=== PATIENT | male | born 1995 | race Caucasian/White ===

== ENCOUNTER 2021-12-29 13:51 | Emergency (ER) | payer MEDICAID, SELFPAY ==
[2021-12-29 13:54] VITALS: BP 162/78; PULSE 84; RESP 16; TEMP 36.9; O2SAT 96; BMI 45.9
--- NOTE | 2021-12-29 14:37 | ED_ITS ---
HPI - Extremity Problem General: Chief complaint: Extremity Problem,Nontraumatic Stated complaint: left leg pain Time Seen by Provider: 12/29/21 14:00 Source: patient and family Mode of arrival: ambulatory Limitations: no limitations History of Present Illness: This gentleman comes to the emergency department because of concerns about lower extremity swelling itching and rash on both lower extremities as well as concerned about a possible blood clot in his left leg. Dates he is fairly sedentary works from home and spends his time sitting at the computer most of the day. He states he is does not get up and ambulate very much at all. He relates that he has apparently had to lower extremity DVT in the past of uncertain etiology. He currently does not take any antiplatelets or anticoagulant medication. He denies any knee injury. He says both of his episodes were behind his left knee. He has no family history of hypercoagulability etc. He also relates he has been scratching both his lower extremities because of the itching and scratching enough that it is causing excoriation and bleeding to areas. He has not had any any if itching in other locations or rash in other locations of his body. He states he has been spending much time outside in the tall grass etc. He does have a pet at home that has fleas and that pet predominantly relates that his feet when he sitting at the computer. When else at home is similarly affected. He denies shortness of breath, chest pain or other associated symptoms at this time. He denies any recent near knee injury. MD Complaint: extremity swelling Associated symptoms: Reports rash; Deny chest pain or fever(s) Context: history of DVT Review of Systems Const: Denies: fever(s) or chills Eyes: Denies: change in vision ENMT: Denies: throat pain, odynophagia, nasal discharge or nasal congestion Card: Denies: chest pain, palpitations, syncope, pre-syncope or dyspnea on exertion Resp: Denies: dyspnea, productive cough or non-productive cough GI: Denies: abdominal pain, nausea or vomiting : Denies: flank pain, difficulty urinating or dysuria Skin/Breast: Reports: rash, pruritus and erythema Neuro: Denies: headache(s), numbness in extremities or weakness in extremities Psych: Denies: anxiety, depression or mood swings Endo: Denies: polyuria or polydipsia Zack/Lymph: Denies: easy bruising or easy bleeding All/Imm: Denies: urticaria Physical Exam Narrative: EXAM NARRATIVE: He is a pleasant gentleman who makes good eye contact and appears comfortable. Speech is goal-directed. Const: COMMON NORMALS: no acute distress, patient oriented x3, healthy appearing and alert GENERAL APPEARANCE: cooperative and comfortable NUTRITIONAL APPEARANCE: overweight HENMT: COMMON NORMALS: normocephalic, Normal nasal mucous membranes and t urbinates present and moist oral mucous membranes HEAD & SCALP: normocephalic NOSE: Normal nasal mucous membranes and turbinates present Eye: COMMON NORMALS: Equal, round and reactive pupils present and EOMs intact bilaterally PUPIL: Yes Equal, round and reactive pupils present Neck/C-Spine: COMMON NORMALS: full ROM and no JVD Chest: COMMONS NORMALS: normal inspection of the chest Resp: COMMON NORMALS: normal respiratory effort, No retractions and No use of accessory muscles EFFORT & INSPECTION: Yes able to speak in complete sentences Cardio: COMMON NORMALS: no JVD, regular rate and Peripheral pulses 2+ throughout RATE: regular rate PERIPHERAL PULSES: Peripheral pulses 2+ throughout GI: COMMON NORMALS: Normal to inspection, nondistended, normoactive bowel sounds present : COMMON NORMALS: Yes no CVA tenderness BLADDER/KIDNEY EXAM: Yes no CVA tenderness Back/Pelvis: COMMON NORMALS: no CVA tenderness, thoracic and lumbar spine normal to inspection and thoraco-lumbar ROM normal Extremity: COMMON NORMALS: capillary refill normal NARRATIVE EXTREMITY EXAM: Examination both lower extremities reveal areas of except linear excoriation on the skin of both lower legs below the knee. None above the knee. He has no joint deformity, joint effusions. Capillary refill is normal. Peripheral pulses are palpable and equal bilaterally. He has numerous raised papules that appear to have clear fluid other than areas that are excoriated which are scabbed. No surrounding erythema or ascending lymphangitis or lymphadenopathy proximally are noted. With attention to his left knee there is no joint effusion. There is no joint line tenderness. He has no laxity of varus or elva maria r stress. He has intact patellar tendon function. No palpable masses in the popliteal fossa. Neuro: COMMON NORMALS: patient oriented x3 and moves all extremities SENSORIUM/ORIENTATION: Yes alert SPEECH: speech normal Psych: COMMON NORMALS: mental status grossly normal Skin: NARRATIVE SKIN EXAM: Skin examination is noted for the papules with linear excoriation as noted above. There is no surrounding erythema redness or proximal lymphangitis or lymphadenopathy. GENERAL SKIN EXAM: no erythema, Excoriation and no petechiae Course Reevaluation(s): Reevaluation #1: Portable bedside ultrasound was used to visualize the venous structures of the left leg. Starting at distal calf and proceeding proximally all veins were compressible to the trifurcation and proximally starting at the trifurcation in the popliteal fossa along the superficial and deep femoral vessels. Time: 14:45 Reevaluation #2: Interestingly his D-dimer is significantly elevated. We will [place] proceed with formal bilateral Doppler ultrasounds. Time: 16:00 Vital Signs: Vital signs: Vital Signs Temperature 98.5 F 12/29/21 13:54 Pulse Rate 84 12/29/21 13:54 Respiratory Rate 16 12/29/21 13:54 Blood Pressure 162/78 12/29/21 13:54 Pulse Oximetry 96 12/29/21 13:54 Oxygen Delivery Me thod 12/29/21 13:54 MDM - Extremity (Nontraumatic) Medical Decision Making Patient who presented to our emergency department because of concerns about possible blood clot in his left leg because of some soreness and swelling in his left leg. History of DVT previously treated in a short-term basis without any sequelae. He also had rash on his lower extremities that was very pruritic and caused him to itch and excoriated his lower extremities. No other constitutional symptoms to include fever shortness of breath cough lightheadedness etc. His evaluation here initially with a bedside ultrasound w as negative for DVT on the left leg however did have a elevated D-dimer so a formal Doppler ultrasound was pleated on both legs without any evidence of DVT or other concerns. Unclear as to the etiology of his lower extremity rash but this may be a factor in the falsely elevated D-dimer. Certainly no evidence to suggest other clinical conditions such as liver disease kidney disease etc. by history that would can be contributory. He otherwise is in good health and clinically stable(i.e. no fever, no tachycardia no hypoxia no shortness of breath etc.0. History of dogs at home with fleas but no other family members affected. Wrong season for chiggers and unlikely to be scabies however does have a clinical appearance that suggest the latter. We will going proceed with symptomatic treatment with outpatient follow-up and return precautions.(No clinical indication of secondary infection or cellulitis at this time.) Also should add that we discussed his homework schedule and he should become more ambulatory and when he does sit for prolonged periods of time he should use support hose. Lab Data I reviewed the patient's lab results. Laboratory Results D-Dimer 3.69 ug/mIFEU (0-0.59) H 12/29/21 14:44 Discharge Plan Discharge Patient Disposition: Home Clinical Impression: Dependent edema, Pruritic rash Condition: Stable Prescriptions: New hydroxyzine HCl 25 mg tablet 25 mg PO BID PRN (Reason: itching) Qty: 20 0RF permethrin 5 % cream 1 applic topical Q14D Qty: 60 0RF Rx Instructions: apply second treatment 14 days after first treatment if live lice remain prednisone 20 mg tablet 20 mg PO BID 7 Days Qty: 14 0RF Discharge Orders: Discharge ED (Routine); Ordered 12/29/21 Ordered By: Jimmy Martinez Discharge Diet: Low Salt Discharge Activity: Increase activity as tolerated Patient Instructions: Opioid Safety, Pain Management Activity Restrictions/Additional Instructions: As we discussed he did not have any evidence of blood clots in your legs today. You do have this rash which is unclear as to its cause but we have prescribed medication to help with your symptoms. We also recommend that you walk and get up and stretch at least on an hourly basis while you are working at your desk. We also recommend that you use support hose to help reduce any lower leg swelling. If you develop fevers chills shortness of breath increasing redness or any other concerns at any time return to this emergency department. Otherwise schedule a follow-up examination with your physician in approximately 2 weeks. Coding Level of Care Code ED Ingredient Specialist for Susan Gonzalez Exam Comprehensive
[2021-12-29 15:48] LABS: D Dimer 3.69 ug/mIFEU (0-0.59)
--- NOTE | 2021-12-29 15:56 | USCV_ITS ---
Alfonzo Lindo Age: 26 Gender: M : 1995 Exam Date: 12/29/2021 16:08 Ordering Phys: Jimmy Martinez DO Technologist: CHERYL [place] [facility] [place]: BLE PAIN HISTORY: Lower extremity pain. PROCEDURES: Venous duplex imaging was performed in bilateral lower extremities. The following venous structures were evaluated: common femoral vein, profunda vein, proximal portion of the greater saphenous vein, superficial femoral vein, and the popliteal vein. In addition, the posterior tibial and peroneal trunk were evaluated. Serial compression, augmentation maneuvers, and spectral Doppler flow evaluation were performed. FINDINGS: No evidence of DVT seen in any vessel visualized at this time. Examination was technically limited due to body habitus. CONCLUSIONS No evidence of right lower extremity DVT. No evidence of left lower extremity DVT. Matthew Hutchinson MD (Electronically Signed) Final Date: 29 December 2021 16:31 S
[2021-12-29 17:48] VITALS: BP 132/81; PULSE 78; RESP 16
== END 2021-12-29 17:49 | disposition home or self-care (01) ==
PROVIDERS: Emergency Provider Emergency Medicine
DX: R60.9 Edema, unspecified (principal); L29.9 Pruritus, unspecified
CPT/HCPCS: 36415; 85378; 93970; 99284

== ENCOUNTER → 2022-04-09 09:41 | Outpatient (BNVA) | payer MEDICAID, SELFPAY | PROVIDERS: Visit Provider Nurse Practitioner Family | DX: S99.911A Unspecified injury of right ankle, initial encounter (principal); X58.XXXA Exposure to other specified factors, initial encounter | CPT/HCPCS: 73610 ==

== ENCOUNTER 2022-07-04 16:22 | Emergency (ER) | payer MEDICAID, SELFPAY ==
[2022-07-04] VITALS (10 sets, daily range): BP systolic 113–174; BP diastolic 73–108; PULSE 58–76; RESP 17–20; TEMP 37; O2SAT 93–97; BMI 48.7
--- NOTE | 2022-07-04 16:52 | CTR_ITS ---
PROCEDURE INFORMATION: Exam: CT Head Without Contrast Exam date and time: 07/04/2022 5:05 PM Age: 27 years old Clinical indication: Dizziness; Additional info: Vertigo TECHNIQUE: Imaging protocol: Computed tomography of the head without contrast. Radiation optimization: All CT scans at this facility use at least one of these dose optimization techniques: automated exposure control; mA and/or kV adjustment per patient size (includes targeted exams where dose is matched to clinical indication); or iterative reconstruction. REPORTING DATA: Count of CT and Cardiac NM exams in prior 12 months: This patient has received 0 known CTs and 0 known cardiac nuclear medicine studies in the 12 months prior to the current study. COMPARISON: No relevant prior studies available. RADIATION DOSE METRICS: Total DLP (mGy-cm): 1175.05 FINDINGS: Brain: Normal. No hemorrhage. Unremarkable white matter. No mass effect. Cerebral ventricles: No ventriculomegaly. Paranasal sinuses: Scattered paranasal sinus mucosal thickening, without air-fluid level present. Mastoid air cells: Visualized mastoid air cells are well aerated. Bones/joints: Unremarkable. No acute fracture. Soft tissues: Unremarkable. CT/CT head wo con* [id number] IMPRESSION: No acute intracranial abnormality.
--- NOTE | 2022-07-04 16:53 | W.ED.DIZZY ---
Documented by User: Aaron Wall DO 07/04/22 16:56 HPI - Dizziness General: Chief Complaint: Dizziness Stated Complaint: Vertigo, Dizziness Time Seen by Provider: 07/04/22 16:46 History of Present Illness: HPI Narrative: Patient presents to the ER with complaints of dizziness, started last night when he got up out of the bed to use the restroom. It was worse this morning. Patient is unable to sit up straight due to the room spinning. Patient has never had this before. MD elicited complaint: dizziness Onset (ago): day(s) (Last night but worse this morning) Timing: awoke with symptoms and constant Severity: moderate Description: sense of movement and room spinning History of similar symptoms: No Exacerbating factors: movement/ambulation and change in body position Relieving factors: nothing Associated symptoms: Reports no associated symptoms; Denies chest pain, chills, nausea or palpitations Associated neuro symptoms: Reports no associated symptoms Review of Systems General: Reports: 10 or more systems reviewed and unremarkable except in HPI and below Const: Denies: fever(s) or chills ENMT: Denies: throat pain or enlarged tonsils Card: Denies: chest pain, palpitations or irregular heart rhythm Resp: Denies: dyspnea, productive cough or non-productive cough GI: Denies: abdominal pain or nausea : Denies: flank pain, difficulty urinating or dysuria Musc: Denies: neck pain, back pain or extremity pain PFS ED PFSH: Medical History Anxiety DVT (deep venous thrombosis) Surgical History No pertinent past surgical history Family History Mother Stroke Father No problems noted. Grandfather Diabetes Social History Smoking and tobacco status: current every day smoker e-cigarettes E-Cigarette Details: vaporizer device Second hand smoke exposure: No Alcohol intake: current Alcohol intake frequency: holidays/special occasions only Alcohol type: beer Substance/Drug Use: current Substance/Drug use frequency: few times a week Adopted: No Lives independently: Yes Household members: significant other Marital status: Single service: No Current occupational status: employed Current gender identity: Male Special macy needs: No Physical Exam Const: COMMON NORMALS: no acute distress, average body habitus, patient oriented x3, no limitations, healthy appearing, alert and well nourished HENMT: COMMON NORMALS: normocephalic, atraumatic, hearing grossly normal bilaterally, external ears normal, Normal external nose present and moist oral mucous membranes HEAD & SCALP: normocephalic and atraumatic NOSE: Normal external nose present EXTERNAL EAR: Yes external ears normal Eye: COMMON NORMALS: Equal, round and reactive pupils present, EOMs intact bilaterally, conjunctivae normal and no scleral icterus CONJUNCTIVA: Yes conjunctivae normal PUPIL: Yes Equal, round and reactive pupils present Neck/C-Spine: COMMON NORMALS: full ROM and no meningeal signs; negative for supple, negative for no JVD, negative for Thyroid normal and negative for No carotid bruits THYROID: abnormal thyroid Lymph: LYMPHATIC: no lymphadenopathy noted Chest: COMMONS NORMALS: normal inspection of the chest and normal palpation of entire chest wall Resp: COMMON NORMALS: normal respiratory effort, No retractions, No use of accessory muscles and clear to auscultation bilaterally AUSCULTATION: clear to auscultation bilaterally Cardio: COMMON NORMALS: regular rate, S1 normal heart sound present and S2 normal heart sound present; negative for no JVD RATE: regular rate HEART SOUNDS: S1 normal heart sound present and S2 normal heart sound present GI: COMMON NORMALS: Normal to inspection, nondistended, normoactive bowel sounds present, Soft to palpation, non-tender, No hepatosplenomegaly present and no masses PALPATION: Yes Soft to palpation and Yes No hepatosplenomegaly present : COMMON NORMALS: Yes no CVA tenderness BLADDER/KIDNEY EXAM: Yes no CVA tenderness Back/Pelvis: COMMON NORMALS: no CVA tenderness Neuro: COMMON NORMALS: patient oriented x3 SENSORIUM/ORIENTATION: Yes alert MENINGEAL SIGNS: Yes no meningeal signs Course Vital Signs: Vital signs: Vital Signs Temperature 98.6 F 07/04/22 16:26 Pulse Rate 76 07/04/22 19:52 Respiratory Rate 20 H 07/04/22 19:52 Blood Pressure 147/89 07/04/22 19:30 Pulse Oximetry 96 07/04/22 19:52 Oxygen Delivery Me thod Room Air 07/04/22 19:30 [facility] - Dizziness Medical Records I reviewed the patient's medical records. Lab Data I reviewed the patient's lab results. 07/04/22 17:30 07/04/22 17:[address] 07/04/22 16:52 IMPRESSION: No acute intracranial abnormality. Laboratory Results WBC 9.9 10^3/uL (4.0-10.0) 07/04/22 17: RBC 5.01 10^6/uL (4.1-5.3) 07/04/22 17:30 Hgb 14.8 g/dL (11.7-16.6) 07/04/22 17:30 Hct 43.5 % (42.0-52.0) 07/04/22 17: MCV 86.8 fl (80-94) 07/04/22 17:30 MCH 29.5 pg (28.0-34.0) 07/04/22 17: MCHC 34.0 g/dL (30.0-36.0) 07/04/22 17: RDW 11.8 % (12.1-15.1) L 07/04/22 17:30 Plt Count 229 10^3/cmm (130-400) 07/04/22 17: MPV 10.7 fL (7.4-10.4) H 07/04/22 17:30 Neut % (Auto) 71.7 % 07/04/22 17:30 Lymph % (Auto) 19.7 % 07/04/22 17:30 [place] % (Auto) 5.8 % 07/04/22 17:30 Eos % (Auto) 2.0 % 07/04/22 17:30 Baso % (Auto) 0.6 % 07/04/22 17:30 Neut # (Auto) 7.10 10^3/uL (1.8-7.7) 07/04/22 17:30 Lymph # (Auto) 2.0 10^3/uL (0.8-4.8) 07/04/22 17:30 [place] # (Auto) 0.6 10^3/uL (0.2-0.9) 07/04/22 17:30 Eos # (Auto) 0.2 10^3/uL (0.0-0.8) 07/04/22 17:30 Baso # (Auto) 0.1 10^3/uL (0.0-0.1) 07/04/22 17:30 Nucleated RBC % (auto) 0 % 07/04/22 17:30 Nucleated RBCs # 0.0 /100WBC 07/04/22 17:30 Sodium 140 mmol/L (136-145) 07/04/22 17:30 Potassium 4.5 mmol/L (3.5-5.1) 07/04/22 17:30 Chloride 105 mmol/L (98-107) 07/04/22 17:30 Carbon Dioxide 24 mmol/L (22-29) 07/04/22 17:30 Anion Gap 15.5 (5-19) 07/04/22 17:30 BUN 8 mg/dL (6-20) 07/04/22 17:30 Creatinine 0.8 mg/dL (0.7-1.2) 07/04/22 17:30 GFR Calculation 115.1 mL/min (90-130) 07/04/22 17:30 Glucose 124 mg/dL (65-115) H 07/04/22 17:30 Calculated Osmolality 290 mOsm/kg (285-295) 07/04/22 17:30 Calcium 8.8 mg/dL (8.5-10.5) 07/04/22 17:30 Total Bilirubin 0.3 mg/dL (0.15-1.2) 07/04/22 17:30 AST 25 U/L (0-40) 07/04/22 17:30 ALT 31 U/L (0-41) 07/04/22 17:30 Alkaline Phosphatase 51 U/L (40-130) 07/04/22 17:30 Total Protein 6.6 g/dL (6.6-8.7) 07/04/22 17:30 Albumin 3.8 g/dL (3.5-5.2) 07/04/22 17:30 Globulin 2.8 g/dL (1.3-4.6) 07/04/22 17:30 SARS-CoV-2 Ag (Rapid) negative (Negative) 07/04/22 17:16 Discharge Plan Discharge Patient Disposition: Home Clinical Impression: Acute bacterial sinusitis Condition: Stable Prescriptions: New doxycycline hyclate 100 mg tablet 100 mg PO BID 7 Days Qty: 14 0RF meclizine 25 mg tablet 25 mg PO TID Qty: 30 0RF No Action diclofenac sodium 75 mg tablet,delayed release (DR/EC) 75 mg PO BID PRN (Reason: pain) Qty: 60 0RF Discharge Orders: Discharge ED (Routine); Ordered 07/04/22 Ordered By: Joe Zhang Patient Instructions: Sinusitis (ED), Vertigo (ED) Activity Restrictions/Additional Instructions: Take medication for dizziness 3 times daily until dizziness decreases significantly. Antibiotics are for sinusitis. See your doctor next week. Return for any new or worrisome symptoms. Call tomorrow for an appointment. Coding Level of Care Code ED Frothing Machine Operator for Chg Fwd Documented by User: Joe Zhang DO 07/04/22 21:17 HPI - Dizziness General: Chief Complaint: Dizziness Stated Complaint: Vertigo, Dizziness Time Seen by Provider: 07/04/22 16:46 PFSH ED PFSH: Medical History Anxiety DVT (deep venous thrombosis) Surgical History No pertinent past surgical history Family History Mother Stroke Father No problems noted. Grandfather Diabetes Social History Smoking and tobacco status: current every day smoker e-cigarettes E-Cigarette Details: vaporizer device Second hand smoke exposure: No Alcohol intake: current Alcohol intake frequency: holidays/special occasions only Alcohol type: beer Substance/Drug Use: current Substance/Drug use frequency: few times a week Adopted: No Lives independently: Yes Household members: significant other Marital status: Single service: No Current occupational status: employed Current gender identity: Male Special macy needs: No Course Vital Signs: Vital signs: Vital Signs Temperature 98.6 F 07/04/22 16:26 Pulse Rate 76 07/04/22 19:52 Respiratory Rate 20 H 07/04/22 19:52 Blood Pressure 147/89 07/04/22 19:30 Pulse Oximetry 96 07/04/22 19:52 Oxygen Delivery Me thod Room Air 07/04/22 19:30 MDM - Dizziness Medical Decision Making 27-year-old male checked out to me by the previous physician at shift change. This patient complains of dizziness. It is somewhat improved, mainly positional at this point, especially with getting up from a sitting position. He is not orthostatic. Laboratory is normal. Head CT is negative, save some sinus disease. We will treat sinusitis and put him on some meclizine and have him follow-up as an outpatient. I see no signs of posterior circulation stroke on repeat exam. Lab Data 07/04/22 17:30 07/04/22 17:[address] 07/04/22 16:52 IMPRESSION: No acute intracranial abnormality. Laboratory Results WBC 9.9 10^3/uL (4.0-10.0) 07/04/22 17:30 RBC 5.01 10^6/uL (4.1-5.3) 07/04/22 17:30 Hgb 14.8 g/dL (11.7-16.6) 07/04/22 17:30 Hct 43.5 % (42.0-52.0) 07/04/22 17:30 MCV 86.8 fl (80-94) 07/04/22 17:30 MCH 29.5 pg (28.0-34.0) 07/04/22 17:30 MCHC 34.0 g/dL (30.0-36.0) 07/04/22 17:30 RDW 11.8 % (12.1-15.1) L 07/04/22 17:30 Plt Count 229 10^3/cmm (130-400) 07/04/22 17:30 MPV 10.7 fL (7.4-10.4) H 07/04/22 17:30 Neut % (Auto) 71.7 % 07/04/22 17:30 Lymph % (Auto) 19.7 % 07/04/22 17:30 [place] % (Auto) 5.8 % 07/04/22 17:30 Eos % (Auto) 2.0 % 07/04/22 17:30 Baso % (Auto) 0.6 % 07/04/22 17:30 Neut # (Auto) 7.10 10^3/uL (1.8-7.7) 07/04/22 17:30 Lymph # (Auto) 2.0 10^3/uL (0.8-4.8) 07/04/22 17:30 [place] # (Auto) 0.6 10^3/uL (0.2-0.9) 07/04/22 17:30 Eos # (Auto) 0.2 10^3/uL (0.0-0.8) 07/04/22 17:30 Baso # (Auto) 0.1 10^3/uL (0.0-0.1) 07/04/22 17:30 Nucleated RBC % (auto) 0 % 07/04/22 17: Nucleated RBCs # 0.0 /100WBC 07/04/22 17:30 Sodium 140 mmol/L (136-145) 07/04/22 17:30 Potassium 4.5 mmol/L (3.5-5.1) 07/04/22 17: Chloride 105 mmol/L (98-107) 07/04/22 17: Carbon Dioxide 24 mmol/L (22-29) 07/04/22 17:30 Anion Gap 15.5 (5-19) 07/04/22 17:30 BUN 8 mg/dL (6-20) 07/04/22 17:30 Creatinine 0.8 mg/dL (0.7-1.2) 07/04/22 17:30 GFR Calculation 115.1 mL/min (90-130) 07/04/22 17:30 Glucose 124 mg/dL (65-115) H 07/04/22 17:30 Calculated Osmolality 290 mOsm/kg (285-295) 07/04/22 17: Calcium 8.8 mg/dL (8.5-10.5) 07/04/22 17:30 Total Bilirubin 0.3 mg/dL (0.15-1.2) 07/04/22 17:30 AST 25 U/L (0-40) 07/04/22 17:30 ALT 31 U/L (0-41) 07/04/22 17:30 Alkaline Phosphatase 51 U/L (40-130) 07/04/22 17:30 Total Protein 6.6 g/dL (6.6-8.7) 07/04/22 17:30 Albumin 3.8 g/dL (3.5-5.2) 07/04/22 17:30 Globulin 2.8 g/dL (1.3-4.6) 07/04/22 17:30 SARS-CoV-2 Ag (Rapid) negative (Negative) 07/04/22 17:16 Discharge Plan Discharge Patient Disposition: Home Clinical Impression: Acute bacterial sinusitis Condition: Stable Prescriptions: New doxycycline hyclate 100 mg tablet 100 mg PO BID 7 Days Qty: 14 0RF meclizine 25 mg tablet 25 mg PO TID Qty: 30 0RF No Action diclofenac sodium 75 mg tablet,delayed release (DR/EC) 75 mg PO BID PRN (Reason: pain) Qty: 60 0RF Discharge Orders: Discharge ED (Routine); Ordered 07/04/22 Ordered By: Joe Zhang Patient Instructions: Sinusitis (ED), Vertigo (ED) Activity Restrictions/Additional Instructions: Take medication for dizziness 3 times daily until dizziness decreases significantly. Antibiotics are for sinusitis. See your doctor next week. Return for any new or worrisome symptoms. Call tomorrow for an appointment. Coding Level of Care Code ED Frothing Machine Operator for Susan Gonzalez
[2022-07-04 17:53] LABS: Basophils # 0.1 10^3/uL (0.0-0.1); Basophils % 0.6 %; Eosinophils # 0.2 10^3/uL (0.0-0.8); Hematocrit 43.5 % (42.0-52.0); Hemoglobin 14.8 g/dL (11.7-16.6); Lymphocytes % 19.7 %; Mean Corpuscular Hemoglobin 29.5 pg (28.0-34.0); Mean Corpuscular Volume 86.8 fl (80-94); Mean Platelet Volume 10.7 fL (7.4-10.4); Monocytes # 0.6 10^3/uL (0.2-0.9); Monocytes % 5.8 %; Neutrophils % 71.7 %; Nucleated Red Blood Cells % 0 %; Platelet Count 229 10^3/cmm (130-400); Red Blood Count 5.01 10^6/uL (4.1-5.3); Red Cell Distribution Width 11.8 % (12.1-15.1); White Blood Count 9.9 10^3/uL (4.0-10.0)
[2022-07-04 18:08] LABS: SARS Covid-2 Antigen negative (Negative)
[2022-07-04 18:30] LABS: Alanine Aminotransferase 31 U/L (0-41); Albumin Level 3.8 g/dL (3.5-5.2); Alkaline Phosphatase 51 U/L (40-130); Anion Gap 15.5 (5-19); Aspartate Amino Transferase 25 U/L (0-40); Blood Urea Nitrogen 8 mg/dL (6-20); Calcium 8.8 mg/dL (8.5-10.5); Carbon Dioxide 24 mmol/L (22-29); Chloride 105 mmol/L (98-107); Globulin 2.8 g/dL (1.3-4.6); Glomerular Filtration Rate 115.1 mL/min (90-130); Glucose 124 mg/dL (65-115); Osmolality Calculated 290 mOsm/kg (285-295); Potassium 4.5 mmol/L (3.5-5.1); Sodium 140 mmol/L (136-145); Total Bilirubin 0.3 mg/dL (0.15-1.2); Total Protein 6.6 g/dL (6.6-8.7)
--- NOTE | 2022-07-04 18:30 | ECG_ITS ---
[facility] Test Date: 2022-07-04 Pat Name: Alfonzo Lindo Department: Room: Gender: Male Conventions Assistant: : 1995 Requested By: Joe Castanon Order Number: [id number] Rosemary MD: Shivam Solano M.D. Measurements Intervals [place] Rate: 59 P: 18 SC: 178 QRS: 50 QRSD: 96 T: 48 QT: 406 QTc: 405 Interpretive Statements SINUS BRADYCARDIA WITH SINUS ARRHYTHMIA No previous ECG available for comparison Electronically Signed On 07-05-2022 17:07:07 CDT by Shivam Solano M.D. [id number]
--- NOTE | 2022-07-04 19:00 | PC.NURSE ---
Pt report taken from Didi CORONA. Rounded on pt, pt sitting in bed in no apparent distress. Pt denies needs at this time.
--- NOTE | 2022-07-15 12:29 | DCPLANNER ---
residential program manager called patient due to no primary care physician - no answer at this time.
== END 2022-07-04 19:55 | disposition home or self-care (01) ==
PROVIDERS: Emergency Medicine; Emergency Provider Emergency Medicine
DX: J01.90 Acute sinusitis, unspecified (principal); B96.89 Other specified bacterial agents as the cause of diseases classified elsewhere; F17.290 Nicotine dependence, other tobacco product, uncomplicated; Z20.822 Contact with and (suspected) exposure to COVID-19
CPT/HCPCS: 36415; 70450; 80053; 85025; 87426; 93005; 99285

== ENCOUNTER → 2022-08-24 12:05 | Outpatient (BNVA) | payer MEDICAID, SELFPAY | PROVIDERS: PCP Nurse Practitioner Family; Visit Provider Nurse Practitioner Family | DX: M79.671 Pain in right foot (principal); M79.672 Pain in left foot; R60.9 Edema, unspecified | CPT/HCPCS: 80048 ==

== ENCOUNTER 2023-02-14 15:01 | Emergency (ER) | payer MEDICAID, SELFPAY ==
[2023-02-14 15:07] VITALS: BP 164/80; PULSE 76; RESP 16; TEMP 36.9; O2SAT 96; BMI 46.6
[2023-02-14 15:22] VITALS: BP 122/73; PULSE 69; RESP 18; O2SAT 98
--- NOTE | 2023-02-14 15:36 | USR_ITS ---
PROCEDURE INFORMATION: Exam: US Duplex Left Lower Extremity Veins, Limited Exam date and time: 02/14/2023 4:07 PM Age: 28 years old Clinical indication: Pain; Leg, lower; Left; Additional info: Swelling, calf pain TECHNIQUE: Imaging protocol: Real-time duplex ultrasound of the left extremity with 2-D hilton scale, color Doppler flow and spectral waveform analysis including responses to compression and other maneuvers (when performed) with image documentation. Limited exam focused on the left lower extremity veins. COMPARISON: No relevant prior studies available. FINDINGS: Left deep veins: Suboptimal visualization of the posterior tibial and peroneal veins. Cannot definitively exclude chronic nonocclusive thrombus in these vessels. The common femoral, femoral, proximal profunda femoral and popliteal veins are patent without thrombus. Superficial veins: Unremarkable. Saphenofemoral junction is patent without thrombus. Soft tissues: Unremarkable. US/[place] [id number] IMPRESSION: Suboptimal visualization of the posterior tibial and peroneal veins. Cannot definitively exclude chronic nonocclusive thrombus in these vessels. No evidence of deep vein thrombosis above the knee.
--- NOTE | 2023-02-14 15:37 | ED_ITS ---
Documented by User: BEVERLEY Ambrose 02/15/23 08:57 HPI - General Adult 2 General: Chief complaint: Abdominal Pain Stated complaint: Lower Back Pain Time Seen by Provider: 02/14/23 15:15 Source: patient Mode of arrival: ambulatory Limitations: no limitations History of Present Illness: Patient is a 28-year-old male who presents to ED today concerned about a possible left leg DVT and concern that it has moved into his lung. Patient admittedly is very anxious and states all of this may just be in my head . He reportedly had a blood clot several years ago in the left leg that was treated with anticoagulation for many months. He states over the past week he has had numbness in the left leg. It is resolved upon arrival to the emergency department. He states after the numbness to the left leg went away he began developing back pain and chest pain and thinks this was the clot moving. Patient does feel like his left leg is swollen and has had some calf pain. States the pain in his back is not present at time of exam. Neither is his chest pain. Symptoms seem to be more present when he lies down for the night but also states his anxiety is the worst at this time too making him believe some of this is anxiety driven. He reports living a very sedentary lifestyle so often gets winded with minimal exertion but feels like this has been worse recently. Onset (ago): day(s) Location: chest, back and lower extremity Severity: mild Pain Consistency: intermittent Associated symptoms: Reports chest pain (none currently) and dyspnea (not sure- states maybe just related to anxiety); Deny headache(s), malaise, nausea, rash, palpitations, syncope or vomiting Treatments prior to arrival: none Review of Systems 2 Const: Denies: fever(s), chills, body aches, fatigue or malaise Eyes: Denies: change in vision or blurry vision Card: Reports: chest pain (none currently), edema (chronic) and swelling of feet/ankles (chronic); Denies: palpitations, irregular heart rhythm, lightheadedness, syncope, pre- syncope, dyspnea on exertion, leg pain with exertion or acrocyanosis Resp: Reports: dyspnea (not sure-states maybe just related to anxiety); Denies: productive cough, non-productive cough, wheezing, stridor, pain on inspiration, change in phlegm color, hemoptysis or chest congestion GI: Denies: abdominal pain, nausea, vomiting, heartburn or diarrhea : Denies: flank pain, difficulty urinating or dysuria Musc: Reports: extremity pain and extremity swelling; Denies: neck pain, back pain, joint pain, joint swelling, joint redness, joint warmth, joint stiffness, limited range of motion, muscle cramps, muscle weakness or decrease in muscle mass Skin/Breast: Denies: rash Neuro: Reports: numbness in extremities (reports numbness to L LE that is gone now); Denies: headache(s), weakness in extremities, sensory changes or difficulty walking Psych: Reports: anxiety PFSH ED 2 PFSH: Medical History DVT (deep venous thrombosis) Anxiety Surgical History No pertinent past surgical history Family History Mother Stroke Father No problems noted. Grandfather Diabetes Social History Smoking and tobacco/nicotine status: current every day tobacco/nicotine user e- cigarettes E-Cigarette Details: vaporizer device Second hand smoke exposure: No Alcohol intake: current Alcohol intake frequency: holidays/special occasions only Alcohol type: beer Substance/Drug Use: current Substance/Drug use frequency: few times a week Adopted: No Lives independently: Yes Household members: significant other Marital status: Single service: No Current occupational status: employed Current gender identity: Male Special macy needs: No Physical Exam 2 Const: COMMON NORMALS: no acute distress, patient oriented x3, no limitations, alert and well nourished GENERAL APPEARANCE: cooperative NUTRITIONAL APPEARANCE: obese (BMI 46.6) morbidly obese ORIENTATION/CONSCIOUSNESS: Yes awake, Yes oriented to person, Yes oriented to place and Yes oriented to time HENMT: COMMON NORMALS: normocephalic and atraumatic HEAD & SCALP: normal to inspection, normocephalic and atraumatic FACE & SINUS: normal facial exam Neck/C-Spine: COMMON NORMALS: full ROM, no lymphadenopathy, supple and no meningeal signs GENERAL: Yes normal visual inspection, No anterior neck swelling and No submandibular swelling Chest: COMMONS NORMALS: normal inspection of the chest and normal palpation of entire chest wall Resp: COMMON NORMALS: normal respiratory effort and clear to auscultation bilaterally AUSCULTATION: clear to auscultation bilaterally Cardio: COMMON NORMALS: regular rate and regular rhythm RATE: regular rate RHYTHM: regular rhythm GI: COMMON NORMALS: Normal to inspection, nondistended, normoactive bowel sounds present, Soft to palpation, non-tender, No hepatosplenomegaly present and no masses PALPATION: Yes Soft to palpation and Yes No hepatosplenomegaly present : COMMON NORMALS: Yes no CVA tenderness BLADDER/KIDNEY EXAM: Yes no CVA tenderness Back/Pelvis: COMMON NORMALS: no CVA tenderness, thoracic and lumbar spine normal to inspection, no thoracic nor lumbar tenderness, thoraco-lumbar ROM normal and straight leg raise negative bilaterally Extremity: COMMON NORMALS: normal to inspection, full ROM, capillary refill normal and no joint enlargement NARRATIVE EXTREMITY EXAM: pt with bilateral symmetrical LE edema although this may just be body habitus; he reports tenderness to L calf with a positive Kerry's and feel leg is swollen- measurements taken and bilateral calves are measuring roughly 50cm GENERAL: Yes normal exam except as noted Neuro: COMMON NORMALS: patient oriented x3, moves all extremities, no focal motor deficits, no sensory deficits noted and gait normal S ENSORIUM/ORIENTATION: Yes alert, Yes oriented to person, Yes oriented to place and Yes oriented to time MENINGEAL SIGNS: Yes no meningeal signs Skin: COMMON NORMALS: no rashes or lesions noted GENERAL SKIN EXAM: no rashes or lesions noted Course 2 ED course: Spoke to Tanvir Video[employer] elda who visualized thrombus in posterior tib and peroneal veins. Because of his complaint of chest pain and shortness of breath CTA will be ordered. Dr. Fuentes will assume care as my shift is ending. ES Vital Signs: Vital signs: Vital Signs Temperature 98.4 F 02/14/23 19:00 Pulse Rate 93 02/14/23 19:00 Respiratory Rate 18 02/14/23 19:00 Blood Pressure 145/87 02/14/23 19:00 Pulse Oximetry 96 02/14/23 19:00 Oxygen Delivery Me thod Room Air 02/14/23 18:36 MDM - General Adult Lab Data 02/14/23 17:33 02/14/23 17:33 Radiology Impressions Venous Duplex 02/14/23 15:36 IMPRESSION: Suboptimal visualization of the posterior tibial and peroneal veins. Cannot definitively exclude chronic nonocclusive thrombus in these vessels. No evidence of deep vein thrombosis above the knee. Chest CTA 02/14/23 16:37 IMPRESSION: Pulmonary thromboembolic disease. No evident right ventricular strain. Diffuse hepatic steatosis. ADDENDUM: 02/14/231928 Dr. Fuentes aware of report per operational center staff. Laboratory Results WBC 8.40 10^3/uL (3.29-11.43) 02/14/23 17:33 RBC 4.50 10^6/uL (3.85-5.65) 02/14/23 17:33 Hgb 13.50 g/dL (11.27-16.99) 02/14/23 17:33 Hct 39.2 % (37-53) 02/14/23 17:33 MCV 87.1 fl (82-101) 02/14/23 17:33 MCH 30.0 pg (27-33) 02/14/23 17:33 MCHC 34.4 g/dL (30-55) 02/14/23 17:33 RDW 12.3 % (12.1-15.1) 02/14/23 17:33 Plt Count 209 10^3/cmm (157-399) 02/14/23 17:33 MPV 9.9 fL (7.4-10.4) 02/14/23 17:33 Neut % (Auto) 70.5 % 02/14/23 17:33 Lymph % (Auto) 23.1 % 02/14/23 17:33 Charlton % (Auto) 4.6 % 02/14/23 17:33 Eos % (Auto) 1.2 % 02/14/23 17:33 Baso % (Auto) 0.4 % 02/14/23 17:33 Neut # (Auto) 5.92 10^3/uL (1.8-7.7) 02/14/23 17:33 Lymph # (Auto) 1.9 10^3/uL (0.8-4.8) 02/14/23 17:33 Charlton # (Auto) 0.4 10^3/uL (0.2-0.9) 02/14/23 17:33 Eos # (Auto) 0.1 10^3/uL (0.0-0.8) 02/14/23 17:33 Baso # (Auto) 0.0 10^3/uL (0.0-0.1) 02/14/23 17:33 Nucleated RBC % (auto) 0 % 02/14/23 17:33 Nucleated RBCs # 0.0 /100WBC 02/14/23 17:33 Sodium 140 mmol/L (136-145) 02/14/23 17:33 Potassium 4.2 mmol/L (3.5-5.1) 02/14/23 17:33 Chloride 105 mmol/L (98-107) 02/14/23 17:33 Carbon Dioxide 27 mmol/L (22-29) 02/14/23 17:33 Anion Gap 12.2 (5-19) 02/14/23 17:33 BUN 7 mg/dL (6-20) 02/14/23 17:33 Creatinine 1.0 mg/dL (0.7-1.2) 02/14/23 17:33 GFR Calculation 88.3 mL/min (90-130) L 02/14/23 17:33 Glucose 91 mg/dL (65-115) 02/14/23 17:33 Calculated Osmolality 288 mOsm/kg (285-295) 02/14/23 17:33 Calcium 8.9 mg/dL (8.5-10.5) 02/14/23 17:33 Total Bilirubin 0.6 mg/dL (0.15-1.2) 02/14/23 17:33 AST 19 U/L (0-40) 02/14/23 17:33 ALT 19 U/L (0-41) 02/14/23 17:33 Alkaline Phosphatase 52 U/L (40-130) 02/14/23 17:33 NT-Pro-B Natriuret Pep 200 pg/mL (0-125) H 02/14/23 17:33 Total Protein 6.7 g/dL (6.6-8.7) 02/14/23 17:33 Albumin 3.8 g/dL (3.5-5.2) 02/14/23 17:33 Globulin 2.9 g/dL (1.3-4.6) 02/14/23 17:33 Discharge Plan Discharge Patient Disposition: Home Clinical Impression: Pulmonary embolism DVT (deep venous thrombosis) Qualifiers: DVT location: lower extremity Affected thrombotic vein of extremity: u nspecified vein of extremity Chronicity: acute Laterality: left Qualified Code(s): I82.402 - Acute embolism and thrombosis of unspecified deep veins of left lower extremity Condition: Stable Prescriptions: New Eliquis 5 mg tablet 10 mg PO BID 7 Days Qty: 28 0RF Eliquis 5 mg tablet 5 mg PO BID Qty: 60 0RF No Action (DME) custom insoles (1 pair) See Rx Instructions .Route .MEDSUPPLY Qty: 1 0RF Rx Instructions: As directed ibuprofen 800 mg Tablet 800 mg PO Q8H PRN (Reason: Pain) Discharge Orders: Discharge ED (Routine); Ordered 02/14/23 Ordered By: Maria Del Rosario Fuentes Referrals: Nereyda Sagastume FNP [Primary Care Provider] - Discharge Diet: Advance as tolerated Discharge Activity: Resume usual activity Patient Instructions: Pulmonary Embolism (ED), Deep Vein Thrombosis (ED) Coding Level of Care Code ED Immigration Services Officer for Chg Fwd Documented by User: Maria Del Rosario Fuentes MD 02/14/23 18:46 HPI - General Adult 2 General: Chief complaint: Abdominal Pain Stated complaint: Lower Back Pain Time Seen by Provider: 02/14/23 15:15 PFSH ED 2 PFSH: Medical History DVT (deep venous thrombosis) Anxiety Surgical History No pertinent past surgical history Family History Mother Stroke Father No problems noted. Grandfather Diabetes Social History Smoking and tobacco/nicotine status: current every day tobacco/nicotine user e- cigarettes E-Cigarette Details: vaporizer device Second hand smoke exposure: No Alcohol intake: current Alcohol intake frequency: holidays/special occasions only Alcohol type: beer Substance/Drug Use: current Substance/Drug use frequency: few times a week Adopted: No Lives independently: Yes Household members: significant other Marital status: Single service: No Current occupational status: employed Current gender identity: Male Special macy needs: No Course 2 Vital Signs: Vital signs: Vital Signs Temperature 98.4 F 02/14/23 19:00 Pulse Rate 93 02/14/23 19:00 Respiratory Rate 18 02/14/23 19:00 Blood Pressure 145/87 02/14/23 19:00 Pulse Oximetry 96 02/14/23 19:00 Oxygen Delivery Me thod Room Air 02/14/23 18:36 MDM - General Adult Medical Decision Making Patient presents here with left lower leg pain does have a small DVT along with a small pulm embolism he is in no distress here he is stable for discharge we will start him on Eliquis he is to follow-up with PCP and return if worsening. Medical Records I reviewed the patient's medical records. Lab Data I reviewed the patient's lab results. 02/14/23 17:33 02/14/23 17:33 Radiology Impressions Venous Duplex 02/14/23 15:36 IMPRESSION: Suboptimal visualization of the posterior tibial and peroneal veins. Cannot definitively exclude chronic nonocclusive thrombus in these vessels. No evidence of deep vein thrombosis above the knee. Chest CTA 02/14/23 16:37 IMPRESSION: Pulmonary thromboembolic disease. No evident right ventricular strain. Diffuse hepatic steatosis. ADDENDUM: 02/14/231928 Dr. Fuentes aware of report per operational center staff. Laboratory Results WBC 8.40 10^3/uL (3.29-11.43) 02/14/23 17:33 RBC 4.50 10^6/uL (3.85-5.65) 02/14/23 17:33 Hgb 13.50 g/dL (11.27-16.99) 02/14/23 17:33 Hct 39.2 % (37-53) 02/14/23 17:33 MCV 87.1 fl (82-101) 02/14/23 17:33 MCH 30.0 pg (27-33) 02/14/23 17:33 MCHC 34.4 g/dL (30-55) 02/14/23 17:33 RDW 12.3 % (12.1-15.1) 02/14/23 17:33 Plt Count 209 10^3/cmm (157-399) 02/14/23 17:33 MPV 9.9 fL (7.4-10.4) 02/14/23 17:33 Neut % (Auto) 70.5 % 02/14/23 17:33 Lymph % (Auto) 23.1 % 02/14/23 17:33 Charlton % (Auto) 4.6 % 02/14/23 17:33 Eos % (Auto) 1.2 % 02/14/23 17:33 Baso % (Auto) 0.4 % 02/14/23 17: Neut # (Auto) 5.92 10^3/uL (1.8-7.7) 02/14/23 17: Lymph # (Auto) 1.9 10^3/uL (0.8-4.8) 02/14/23 17:33 Charlton # (Auto) 0.4 10^3/uL (0.2-0.9) 02/14/23 17:33 Eos # (Auto) 0.1 10^3/uL (0.0-0.8) 02/14/23 17:33 Baso # (Auto) 0.0 10^3/uL (0.0-0.1) 02/14/23 17:33 Nucleated RBC % (auto) 0 % 02/14/23 17: Nucleated RBCs # 0.0 /100WBC 02/14/23 17:33 Sodium 140 mmol/L (136-145) 02/14/23 17:33 Potassium 4.2 mmol/L (3.5-5.1) 02/14/23 17:33 Chloride 105 mmol/L (98-107) 02/14/23 17:33 Carbon Dioxide 27 mmol/L (22-29) 02/14/23 17:33 Anion Gap 12.2 (5-19) 02/14/23 17:33 BUN 7 mg/dL (6-20) 02/14/23 17:33 Creatinine 1.0 mg/dL (0.7-1.2) 02/14/23 17:33 GFR Calculation 88.3 mL/min (90-130) L 02/14/23 17:33 Glucose 91 mg/dL (65-115) 02/14/23 17:33 Calculated Osmolality 288 mOsm/kg (285-295) 02/14/23 17:33 Calcium 8.9 mg/dL (8.5-10.5) 02/14/23 17:33 Total Bilirubin 0.6 mg/dL (0.15-1.2) 02/14/23 17:33 AST 19 U/L (0-40) 02/14/23 17:33 ALT 19 U/L (0-41) 02/14/23 17:33 Alkaline Phosphatase 52 U/L (40-130) 02/14/23 17:33 NT-Pro-B Natriuret Pep 200 pg/mL (0-125) H 02/14/23 17:33 Total Protein 6.7 g/dL (6.6-8.7) 02/14/23 17:33 Albumin 3.8 g/dL (3.5-5.2) 02/14/23 17:33 Globulin 2.9 g/dL (1.3-4.6) 02/14/23 17:33 All radiology interpretation(s) finalized by discharge Discharge Plan Discharge Patient Disposition: Home Clinical Impression: Pulmonary embolism DVT (deep venous thrombosis) Qualifiers: DVT location: lower extremity Affected thrombotic vein of extremity: u nspecified vein of extremity Chronicity: acute Laterality: left Qualified Code(s): I82.402 - Acute embolism and thrombosis of unspecified deep veins of left lower extremity Condition: Stable Prescriptions: New Eliquis 5 mg tablet 10 mg PO BID 7 Days Qty: 28 0RF Eliquis 5 mg tablet 5 mg PO BID Qty: 60 0RF No Action (DME) custom insoles (1 pair) See Rx Instructions .Route .MEDSUPPLY Qty: 1 0RF Rx Instructions: As directed ibuprofen 800 mg Tablet 800 mg PO Q8H PRN (Reason: Pain) Discharge Orders: Discharge ED (Routine); Ordered 02/14/23 Ordered By: Maria Del Rosario Fuentes Referrals: Nereyda Sagastume FNP [Primary Care Provider] - Discharge Diet: Advance as tolerated Discharge Activity: Resume usual activity Patient Instructions: Pulmonary Embolism (ED), Deep Vein Thrombosis (ED) Coding Level of Care Code ED Immigration Services Officer for Chg Fwd
--- NOTE | 2023-02-14 15:37 | ECG_ITS ---
[facility] Test Date: 2023-02-14 Pat Name: Alfonzo Lindo Department: Room: Gender: Male Digitizer: : 1995 Requested By: Marilyn Johns Order Number: [id number] Rosemary MD: Denise Cheney M.D. Measurements Intervals [place] Rate: 62 P: 3 OK: 180 QRS: 47 QRSD: 101 T: 42 QT: 397 QTc: 404 Interpretive Statements SINUS RHYTHM WITH SINUS ARRHYTHMIA Compared to ECG 07/04/2022 18:30:47 Sinus bradycardia no longer present Electronically Signed On 02-14-2023 17:50:53 COPPER MINER BLASTING by Denise Cheney M.D. [email or web address] [email or web address] medical centerRingregency hospital cleveland eastNewton Peripherals/store/OM/[id number]
--- NOTE | 2023-02-14 15:37 | XR_ITS ---
WS: [id number] Portable AP upright chest, 02/14/2023 Clinical Data: chest pain Comparison: None. Findings: No nodules, masses or effusions are seen. The heart is normal. The pulmonary vascularity is not increased. No pneumonia or pneumothorax is seen. There are possible calcifications in the left a xilla. Impression: Negative chest.
--- NOTE | 2023-02-14 16:37 | CTR_ITS ---
PROCEDURE INFORMATION: Exam: CTA Chest With Contrast Exam date and time: 02/14/2023 5:51 PM Age: 28 years old Clinical indication: Shortness of breath; Additional info: Chest pain/sob; Diagnosed L le dvt TECHNIQUE: Imaging protocol: Computed tomographic angiography of the chest with contrast. Exam focused on the arteries. 3D rendering (Not supervised by radiologist): MIP and/or 3D reconstructed images were created by the technologist. Radiation optimization: All CT scans at this facility use at least one of these dose optimization techniques: automated exposure control; mA and/or kV adjustment per patient size (includes targeted exams where dose is matched to clinical indication); or iterative reconstruction. Contrast material: OMNI 350; Contrast volume: 100 ml; Contrast route: INTRAVENOUS (IV); REPORTING DATA: Count of CT and Cardiac NM exams in prior 12 months: This patient has received [address] and 0 known cardiac nuclear medicine studies in the 12 months prior to the current study. COMPARISON: CR XR chest 1V portable [id number] 02/14/2023 3:40 PM RADIATION DOSE METRICS: Total DLP (mGy-cm): 1118.43 FINDINGS: Pulmonary arteries: Pulmonary artery filling defects are noted bilaterally, right greater than left. There is suboptimal pulmonary artery contrast. The most proximal filling defects are in lobar arteries on the right. Aorta: No aortic aneurysm. No aortic dissection. Cardiac RV/LV ratio: 0.9 Lungs: No consolidation. No masses. Pleural spaces: No pneumothorax. No pleural effusion. Heart: No cardiomegaly. No pericardial effusion. Lymph nodes: No enlarged lymph nodes. Liver: Diffuse hepatic steatosis. Bones/joints: No acute fracture. Soft tissues: Unremarkable. CT/CT angio chest PE protcl [id number] IMPRESSION: Pulmonary thromboembolic disease. No evident right ventricular strain. Diffuse hepatic steatosis.
[2023-02-14 17:39] VITALS: BP 153/117; PULSE 74; RESP 18; O2SAT 96
[2023-02-14 17:42] LABS: Basophils % 0.4 %; Eosinophils # 0.1 10^3/uL (0.0-0.8); Eosinophils % 1.2 %; Hematocrit 39.2 % (37-53); Lymphocytes # 1.9 10^3/uL (0.8-4.8); Lymphocytes % 23.1 %; Mean Corpuscular HGB Conc 34.4 g/dL (30-55); Mean Corpuscular Volume 87.1 fl (82-101); Mean Platelet Volume 9.9 fL (7.4-10.4); Monocytes # 0.4 10^3/uL (0.2-0.9); Monocytes % 4.6 %; Neutrophils # 5.92 10^3/uL (1.8-7.7); Neutrophils % 70.5 %; Nucleated Red Blood Cells % 0 %; Platelet Count 209 10^3/cmm (157-399); Red Cell Distribution Width 12.3 % (12.1-15.1)
[2023-02-14 18:21] LABS: Alanine Aminotransferase 19 U/L (0-41); Albumin Level 3.8 g/dL (3.5-5.2); Alkaline Phosphatase 52 U/L (40-130); Anion Gap 12.2 (5-19); Aspartate Amino Transferase 19 U/L (0-40); Blood Urea Nitrogen 7 mg/dL (6-20); Calcium 8.9 mg/dL (8.5-10.5); Carbon Dioxide 27 mmol/L (22-29); Chloride 105 mmol/L (98-107); Globulin 2.9 g/dL (1.3-4.6); Glomerular Filtration Rate 88.3 mL/min (90-130); Glucose 91 mg/dL (65-115); NT Pro B Type Natriuretic Pept 200 pg/mL (0-125); Osmolality Calculated 288 mOsm/kg (285-295); Potassium 4.2 mmol/L (3.5-5.1); Sodium 140 mmol/L (136-145); Total Bilirubin 0.6 mg/dL (0.15-1.2); Total Protein 6.7 g/dL (6.6-8.7)
[2023-02-14 18:36] VITALS: BP 145/87; PULSE 93; O2SAT 96
[2023-02-14 19:00] VITALS: BP 145/87; PULSE 93; RESP 18; TEMP 36.9; O2SAT 96
== END 2023-02-14 19:08 | disposition home or self-care (01) ==
PROVIDERS: Physician Assistant; Emergency Provider Emergency Medicine; PCP Nurse Practitioner Family
DX: I82.402 Acute embolism and thrombosis of unspecified deep veins of left lower extremity (principal); I26.99 Other pulmonary embolism without acute cor pulmonale; F17.290 Nicotine dependence, other tobacco product, uncomplicated
CPT/HCPCS: 36415; 71045; 71275; 80053; 83880; 85025; 93005; 93971; 99285; Q9967

== ENCOUNTER 2023-02-28 12:00 | Emergency (ER) | payer MEDICAID, SELFPAY ==
[2023-02-28 12:01] VITALS: BP 132/87; PULSE 77; RESP 18; TEMP 36.8; O2SAT 98; BMI 53.8
--- NOTE | 2023-02-28 12:08 | ECG_ITS ---
[facility] Test Date: 2023-02-28 Pat Name: Alfonzo Lindo Department: Room: Gender: Male Accounting Officer: : 1995 Requested By: Edward Thakur Order Number: [id number] Rosemary MD: Yayo Flores M.D. Measurements Intervals [place] Rate: 89 P: 35 MN: 183 QRS: 48 QRSD: 93 T: 46 QT: 365 QTc: 445 Interpretive Statements SINUS RHYTHM Compared to ECG 02/14/2023 15:50:37 Sinus arrhythmia no longer present Electronically Signed On 02-28-2023 12:53:43 PROFESSOR OF VIOLIN by Yayo Flores M.D. [email or web address] county medical centerQwilr/store/[id number] f
[2023-02-28 12:37] VITALS: BP 157/87; PULSE 77; RESP 16; O2SAT 97
[2023-02-28 12:46] VITALS: BP 157/87; PULSE 76; RESP 16; O2SAT 96
[2023-02-28 13:00] VITALS: BP 125/83; PULSE 78; RESP 16; O2SAT 96
[2023-02-28 13:30] VITALS: BP 137/85; PULSE 76; RESP 16; O2SAT 98
--- NOTE | 2023-02-28 13:57 | W.ED.SOB ---
HPI - SOB/Dyspnea General: Chief Complaint: Shortness of Breath/Dyspnea Stated Complaint: sob, chest pain Time Seen by Provider: 02/28/23 12:44 PFSH ED PFSH: Medical History DVT (deep venous thrombosis) Anxiety Surgical History No pertinent past surgical history Family History Mother Stroke Father No problems noted. Grandfather Diabetes Social History Smoking and tobacco/nicotine status: current every day tobacco/nicotine user e-cigarettes E-Cigarette Details: vaporizer device Second hand smoke exposure: No Alcohol intake: current Alcohol intake frequency: holidays/special occasions only Alcohol type: beer Substance/Drug Use: current Substance/Drug use frequency: few times a week Adopted: No Lives independently: Yes Household members: significant other Marital status: Single service: No Current occupational status: employed Current gender identity: Male Special macy needs: No Course Vital Signs: Vital signs: Vital Signs Temperature 98.2 F 02/28/23 12:01 Pulse Rate 76 02/28/23 13:30 Respiratory Rate 16 02/28/23 13:30 Blood Pressure 137/85 02/28/23 13:30 Pulse Oximetry 98 02/28/23 13:30 Oxygen Delivery Me thod Room Air 02/28/23 12:01 Discharge Plan Discharge Condition: Stable Prescriptions: No Action (DME) custom insoles (1 pair) See Rx Instructions .Route .MEDSUPPLY Qty: 1 0RF Rx Instructions: As directed Eliquis 5 mg tablet 5 mg PO BID Qty: 60 0RF Referrals: Nereyda Sagastume FNP [Primary Care Provider] - Coding Level of Care Code ED Dry Heat Room Attendant for Susan Gonzalez
--- NOTE | 2023-02-28 14:02 | ED_ITS ---
HPI - SOB/Dyspnea General: Chief Complaint: Shortness of Breath/Dyspnea Stated Complaint: sob, chest pain Time Seen by Provider: 02/28/23 12:44 History of Present Illness: HPI Narrative: 28-year-old male with a history of seden tary lifestyle, DVT, obesity who presents to the emergency department for follow-up. Patient was seen here on February 14 and diagnosed with left lower extremity DVT as well as a pulmonary embolism. He did not have any signs of right heart strain, hypoxia, or other indications requiring admission. He was prescribed Eliquis 10 mg p.o. twice daily for 7 days and has now transition to 5 mg p.o. twice daily. He had had his first diagnosis of DVT many years ago and the diagnosis on 14 February was his second time to have blood clot. Patient reports he has had intermittent chest pain and shortness of breath. He has a follow-up with his doctor this week but wanted to be evaluated. He states he has anxiety. It is hard for him to tell which symptoms are anxiety and which ones are real and the medical treatment. He says in the past he was taking Xarelto and it was a higher dose. He was unaware that they Eliquis and Xarelto are not dosed the same. He does not have a pulse oximeter and therefore has not been able to check his oxygen saturation and has not checked his heart rate. He says that the episodes of chest pain and shortness of breath come in waves and he feels like they are anxiety. His left lower extremity continues to have some mild swelling but has not gotten worse and there has not been any discoloration or warmth. No hemoptysis. He's compliant with eliquis. Associated symptoms: Deny abdominal pain, extremity pain, fever(s), nausea, syncope or vomiting Review of Systems General: Reports: 10 or more systems reviewed and unremarkable except in HPI and below Const: Denies: fever(s), chills or body aches ENMT: Denies: throat pain Card: Denies: syncope Resp: Denies: dyspnea or productive cough GI: Denies: abdominal pain, nausea, vomiting or diarrhea : Denies: flank pain, dysuria or urinary frequency Musc: Denies: neck pain, back pain, extremity pain or extremity swelling Skin/Breast: Denies: rash or erythema Neuro: Denies: headache(s), numbness in extremities, weakness in extremities, lack of coordination or difficulty walking PFSH ED PFSH: Medical History DVT (deep venous thrombosis) Anxiety Surgical History No pertinent past surgical history Family History Mother Stroke Father No problems noted. Grandfather Diabetes Social History Smoking and tobacco/nicotine status: current every day tobacco/nicotine user e- cigarettes E-Cigarette Details: vaporizer device Second hand smoke exposure: No Alcohol intake: current Alcohol intake frequency: holidays/special occasions only Alcohol type: beer Substance/Drug Use: current Substance/Drug use frequency: few times a week Adopted: No Lives independently: Yes Household members: significant other Marital status: Single service: No Current occupational status: employed Current gender identity: Male Special macy needs: No Physical Exam Const: COMMON NORMALS: no limitations, alert and well nourished EXAM LIMITATIONS: no altered mental status HENMT: COMMON NORMALS: normocephalic, atraumatic and external ears normal HEAD & SCALP: normocephalic and atraumatic EXTERNAL EAR: Yes external ears normal MOUTH: no muffled voice Eye: COMMON NORMALS: EOMs intact bilaterally, conjunctivae normal and no scleral icterus CONJUNCTIVA: Yes conjunctivae normal Neck/C-Spine: COMMON NORMALS: no JVD GENERAL: Yes normal visual inspection and Yes trachea midline Resp: COMMON NORMALS: normal respiratory effort, No use of accessory muscles and clear to auscultation bilaterally AUSCULTATION: clear to auscultation bilaterally Cardio: COMMON NORMALS: no JVD, regular rate and regular rhythm RATE: regular rate RHYTHM: regular rhythm GI: COMMON NORMALS: Soft to palpation and non-tender PALPATION: Yes Soft to palpation and No Guarding due to palpation present (GI) Extremity: NARRATIVE EXTREMITY EXAM: Mild fullness in the left calf versus the right calf. No varicose veins, erythema, signs of vascular congestion or cellulitis. Neuro: COMMON NORMALS: moves all extremities, no focal motor deficits and no sensory deficits noted SENSORIUM/ORIENTATION: Yes alert SPEECH: speech normal Psych: COMMON NORMALS: mental status grossly normal, Normal thought process present, cooperative, normal affect and speech normal SPEECH: Yes normal speech MOOD & AFFECT: Yes anxious THOUGHT PROCESS: Normal thought process present Skin: COMMON NORMALS: no rashes or lesions noted, turgor normal and no jaundice GENERAL SKIN EXAM: no rashes or lesions noted and turgor normal Course Vital Signs: Vital signs: Vital Signs Temperature 98.2 F 02/28/23 12:01 Pulse Rate 76 02/28/23 13:30 Respiratory Rate 16 02/28/23 13:30 Blood Pressure 137/85 02/28/23 13:30 Pulse Oximetry 98 02/28/23 13:30 Oxygen Delivery Me thod Room Air 02/28/23 12:01 MDM - SOB/Dyspnea Medical Decision Making this is a very pleasant 28-year-old male who has a diagnosis of DVT and pulmonary embolism on Eliquis. As described above, he has anxiety and wanted to be evaluated to make sure his vital signs were okay and that he did not need a change in management. His oxygen saturation is 96 to 100%, respiratory rate 14, heart rate in the 70s. He is not having any hemoptysis nor any signs of worsening DVT. I have reviewed the CT scan from the which showed: Pulmonary arteries: Pulmonary artery filling defects are noted bilaterally, right greater than left. There is suboptimal pulmonary artery contrast. The most proximal filling defects are in lobar arteries on the right. I discussed with the patient which clinical indicators we use to chiquis whether the patient has had a failure of therapy or needs a repeat ultrasound or CT scan. I do not think he has failed his therapy. I do not think that the benefits of doing a CT scan outweigh the risks associated with the radiation, as there is a very low likelihood that we would change his treatment. He does not have signs of cor pulmonale or worsening DVT. Therefore he would not get c atheter directed thrombolysis or thrombectomy at this time given its associated risks. Patient was very understanding of this. I have asked that he check his heart rate, respiratory rate, and pulse oximetry at the times in which he is feeling chest pain and shortness of breath. After he has gotten through the anxiety of it and he has calm down, if his vital signs are abnormal then he is to seek treatment. I gave him instructions on which vital signs were abnormal. He does have a follow-up with his primary care this week. At this time patient will be discharged, no further questions from patient or family. No radiology studies performed this visit Discharge Plan Discharge Clinical Impression: Pulmonary embolism, DVT (deep venous thrombosis) Condition: Stable Prescriptions: No Action (DME) custom insoles (1 pair) See Rx Instructions .Route .MEDSUPPLY Qty: 1 0RF Rx Instructions: As directed Eliquis 5 mg tablet 5 mg PO BID Qty: 60 0RF Discharge Orders: Discharge ED (Routine); Ordered 02/28/23 Ordered By: Kwame Schmitz Referrals: Nereyda Sagastume FNP [Primary Care Provider] - 4-7 days Discharge Diet: Advance as tolerated Discharge Activity: Increase activity as tolerated Patient Instructions: Pulmonary Embolism (ED), Deep Vein Thrombosis (ED), Pain Management Activity Restrictions/Additional Instructions: Your heart rate should be between 60 and 90 while at rest and relaxed. If it is consistently elevated above 90 while you are relaxed, this could be abnormal and you should call your doctor or go to the ER. Your respiratory rate should be between 12 and 18 breaths/min while at rest. If you are consistently breathing above 20 times per minute, this could be a sign of worsening pulmonary embolism. You should also check your oxygen level. Normally, your oxygen concentration should be 94% or greater. If you are less than 94% while at rest and relaxed, this is abnormal and you should get further workup. You may get a pulse oximeter that also measures your heart rate at local drug stores. If your leg begins to swell more or turns bluish, red, or purple, this is a sign that you are getting worse and it would be another reason to be seen in the emergency department. Please schedule a prompt follow-up with your primary care doctor. Continue taking Eliquis twice a day. It would be advisable to wear compression stockings and to do a moderate amount of light activity to reduce the likelihood of clot. Coding Level of Care Code ED Electrical Sign Wirer for Susan Gonzalez
== END 2023-02-28 14:05 | disposition home or self-care (01) ==
PROVIDERS: Emergency Provider Emergency Medicine; PCP Nurse Practitioner Family
DX: I26.99 Other pulmonary embolism without acute cor pulmonale (principal); I82.402 Acute embolism and thrombosis of unspecified deep veins of left lower extremity; Z79.01 Long term (current) use of anticoagulants; Z86.718 Personal history of other venous thrombosis and embolism; F17.290 Nicotine dependence, other tobacco product, uncomplicated
CPT/HCPCS: 93005; 99283